=== PATIENT | female | born 1945 | race Caucasian/White ===

== ENCOUNTER 2019-03-26 06:42 | Day surgery (SDC) | payer OTHER ==
--- NOTE | 2019-03-25 17:00 | Pre-op HX & Phy Repo 2 SIG ---
DATE OF ADMISSION: 03/26/2019 DATE OF SURGERY: 03/26/2019 PREOPERATIVE DIAGNOSIS: Exposed scleral buckle, right eye. PROCEDURE TO BE PERFORMED: 1. Removal of scleral buckle, right eye. 2. Possible laser indirect ophthalmoscopy, right eye. BRIEF NOTE: This is a first [facility] admission for the patient, who is a very kind 73-year-old lady, who has had problems after a scleral buckling procedure done for retinal detachment in December of this year. The surgery went well, but there was exposure of the scleral buckle superotemporally. Her surgeon attempted closure of the defect in January, but this too was failed and she complains of constant irritation. She is admitted for removal of the buckle. PAST MEDICAL HISTORY: Remarkable for heart disease and hypertension. SOCIAL HISTORY: She is a former smoker. MEDICATIONS: She is currently on topical antibiotic ophthalmic drops, clopidogrel, rosuvastatin, metoprolol, and sertraline. ALLERGIES: She has no known allergies. PHYSICAL EXAMINATION: Best vision at the time of admission was 20/60 in the right eye and 20/40- in the left with pressures of 10 and 12. The external examination was unremarkable with normal pupils. Anterior segment examination of the right eye showed a conjunctival defect at about the 10 o'clock position overlying the scleral buckle. The buckling element and suture material were visible. No evidence of infection was seen. The left anterior segment was quiet. There was a bit of a gas cataract with nuclear sclerosis on the right. The left showed an early nuclear sclerotic cataract. Funduscopic examination of the right eye showed a peripheral scleral buckle. The retina was all attached with scattered areas of scarring suggestive of old laser treatment. The demarcation line was seen inferior to the macula extending from the buckle to below the optic nerve, suggestive of a prior level of detachment. The left fundus appeared benign without evidence of retinal tears or detachments. General physical examination was done by the patient's physician and will be updated on arrival. ASSESSMENT: 1. Extruding scleral buckle, right eye status post retinal detachment repair. 2. Early cataract, right eye. PLAN: The plan is to perform an external surgery with removal of the scleral buckle, closure of the defect, and laser indirect ophthalmoscopy if needed to reinforce the prior retinopexy. The risks and benefits of surgery have been gone over the patient with potential for infection, the detachment of the retina and late detachment the retina. The risk of anesthesia was discussed. The patient understands and consents to the surgery, which will be performed tomorrow morning. Jose Melgar M.D. DR: KVNG JOB#: [id number] CC:
[~2019-03-26] VITALS: Ht 149.9 cm; Wt 61.2 kg
[2019-03-26] VITALS (9 sets, daily range): BP systolic 106–122; BP diastolic 51–56
[~2019-03-26 06:42] MED LIST: Pred Forte 1% Opth Susp 1ml RIGHT EYE SCH
[2019-03-26] MEDS ORDERED: Lidocaine 2% MPF 5ml Vial INJ ONE (06:50)
[2019-03-26] MEDS ORDERED: Maxitrol Opth Susp 5ml ONE (06:50)
[2019-03-26] MEDS ORDERED: BSS 15ml BTL ONE (06:50)
[2019-03-26] MEDS ORDERED: Bupivacaine 0.25% Inj 30ml INJ ONE (06:50)
[2019-03-26] MEDS ORDERED: Povidone-Iodine 5% opth solution ONE (06:50)
[2019-03-26] MEDS: Vigamox Opth Soln 3ml RIGHT EYE SCH ×3 (07:04→07:20)
[2019-03-26] MEDS: Flurbiprofen 0.03% Opth Sol 2.5ml RIGHT EYE SCH ×3 (07:04→07:20)
[2019-03-26] MEDS: Phenylephrine 2.5% Op 2ml Soln RIGHT EYE SCH ×3 (07:04→07:20)
[2019-03-26] MEDS: Cyclopentolate 1% Opth Sol 2ml RIGHT EYE SCH ×3 (07:04→07:20)
[2019-03-26] MEDS ORDERED: fentaNYL 100 mcg/2 mL ONE (07:06)
[2019-03-26] MEDS ORDERED: Propofol 200mg/20ml IV ONE (07:06)
[2019-03-26] MEDS ORDERED: LR 1000ml ONE (07:30)
[2019-03-26] MEDS ORDERED: Sterile Water Irrig 1000ml IRRIG ONE (07:30)
[2019-03-26] MEDS ORDERED: NS Irrig 1000ml ONE (07:30)
[2019-03-26] MEDS ORDERED: CRESTOR20 MG ORAL (07:31)
[2019-03-26] MEDS ORDERED: PLAVIX75 MG ORAL (07:31)
[2019-03-26] MEDS ORDERED: MULTIVITAMINS1 EAC2 ORAL (07:31)
[2019-03-26] MEDS ORDERED: VITAMIN D32000 UNI2 PO (07:31)
[2019-03-26] MEDS ORDERED: SERTRALINE HCL25 MG ORAL (07:31)
[2019-03-26] MEDS ORDERED: ASPIR 8181 MG ORAL (07:31)
[2019-03-26] MEDS ORDERED: ZOLPIDEM TARTRA10 MG ORAL (07:31)
[2019-03-26] MEDS ORDERED: COQ1050 MG PO (07:31)
[2019-03-26] MEDS ORDERED: VITAMIN B122500 MCG PO (07:31)
[2019-03-26] MEDS ORDERED: METOPROLOL SUCC25 MG ORAL (07:31)
[2019-03-26] MEDS ORDERED: HYZAAR 50-12.51 EACH ORAL (07:31)
[2019-03-26] MEDS ORDERED: XANAX0.5 MG ORAL (07:31)
[2019-03-26] MEDS ORDERED: LR 1000ml 1,000 ML IVLG SCH (07:34)
--- NOTE | 2019-03-26 07:34 | Anethesia Preoperative Eval ---
Anesthesia Pre-op PMH/ROS General Date of Evaluation: Mar 26, 2019 Time of Evaluation: 07:29 Anesthesiologist: Lora ASA Score: ASA 3 Mallampati Score Class I : Soft palate, uvula, fauces, pillars visible Class II: Soft palate, uvula, fauces visible Class III: Soft palate, base of uvula visible Class IV: Only hard plate visible Mallampati Classification: Class II Surgeon: Ramón Diagnosis: R eye retained scleral buckle Surgical Procedure: R eye scleral buckle removal Anesthesia History: none Social History: smoking - h/o Family History: no anesthesia problems Allergies: Coded Allergies: No Known Allergies (Unverified , 03/26/19) Medications: see eMAR Patient NPO?: Yes Past Medical History Cardiovascular: Reports: HTN; Denies: CAD, [place], valve dz, arrhythmia, other Pulmonary: 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; Denies: asthma, SARAHY, other Gastrointestinal/Genitourinary: Reports: GERD - mkild; Denies: CRI, ESRD, other Neurologic/Psychiatric: Denies: dementia, CVA, depression/anxiety, TIA, other Endocrine: Denies: DM, hypothyroidism, steroids, other HEENT: Reports: cataract (L), cataract (R), other - h/o retinal detouchment R eye; Denies: glaucoma, [place] (L), [place] (R) Hematology/Immune: Denies: anemia, DVT, bleeding disorder, other Musculoskeletal/Integumentary: Reports: OA; Denies: RA, DJD, DDD, edema, other PMH Narrative: as above PSxH Narrative: R eye scleral buckle Anesthesia Pre-op Phys. Exam Physician Exam Last Vital Signs Date Time Temp Pulse Resp B/P (MAP) Pulse Ox O2 Delivery O2 Flow Rate FiO2 03/26/19 07:17 Room Air 03/26/19 07:10 98.4 55 18 118/55 98 Constitutional: NAD Neurologic: CN 2-12 intact Cardiovascular: RRR Respiratory: CTA Gastrointestinal: S/NT/ND Airway Exam Mallampati Score: Class II MO: limited Neck: stiff ROM: limited Teeth: missing Dentures: no upper, no lower Anesthesia Pre-op A/P Labs see chart Risk Assessment & Plan Assessment: ASA 3 Plan: MAC Pre-Antibiotics Drug: none Rafa Paulino MD Mar 26, 2019 07:34
--- NOTE | 2019-03-26 07:44 | Pre-Procedure Note/Attestation ---
Pre-Procedure Note/Attestation Complete Prior to Procedure Planned Procedure: right Procedure Narrative: Removal of exposed scleral buckle, possible laser indirect ophthalmoscopy RIGHT eye Indications for Procedure Pre-Operative Diagnosis: Exposed scleral buckle RIGHT eye Attestation I attest that I discussed the nature of the procedure; its benefits; risks and complications; and alternatives (and the risks and benefits of such alternatives ), prior to the procedure, with the patient (or the patient's legal shared services representative). I attest that, if there was a reasonable possibility of needing a blood transfusion, the patient (or the patient's legal shared services representative) was given the [facility] standardized written summary, pursuant to the Kristian [place] Blood Safety Act ([place] Health and Safety Code # 1645, as amended). I attest that I re-evaluated the patient just prior to the surgery and that there has been no change in the patient's H&P, except as documented below: Jose Melgar MD Mar 26, 2019 07:44
[2019-03-26] MEDS ORDERED: fentaNYL 100 mcg/2 mL IV PRN (07:45)
[2019-03-26] MEDS ORDERED: Ketorolac 30mg Inj IV PRN (07:45)
[2019-03-26] MEDS ORDERED: HYDROcodone/Acetamin 5/325 tab ORAL PRN (07:45)
[2019-03-26] MEDS ORDERED: DiphenhydrAMINE 50mg/ml Inj IVP PRN (07:45)
[2019-03-26] MEDS ORDERED: Dexamethasone 4mg/ml vial ONE (08:20)
[2019-03-26] MEDS ORDERED: Pred Forte 1% Opth Susp 1ml ONE (08:52)
--- NOTE | 2019-03-26 08:55 | Immediate Post-Op Evaluation ---
Immediate Post-Op Evalulation Immediate Post-Op Evalulation Procedure: R eye removal of scleral buckle, laser treatment Date of Evaluation: Mar 26, 2019 Time of Evaluation: 08:53 IV Fluids: 400 Blood Products: none Estimated Blood Loss: min Urinary Output: none Blood Pressure Systolic: 116 Blood Pressure Diastolic: 58 Pulse Rate: 56 Respiratory Rate: 20 O2 Sat by Pulse Oximetry: 99 Temperature (Fahrenheit): 97.6 Pain Score (1-10): 1 Nausea: No Vomiting: No Complications none Patient Status: awake, patent, none Hydration Status: adequate Rafa Paulino MD Mar 26, 2019 08:55
[2019-03-26] MEDS ORDERED: Polysporin Opth Oint 3.5gm ONE (08:58)
--- NOTE | 2019-03-26 08:59 | Brief Operative Note ---
Immediate Post Operative Note Operative Note Chief Complaint: Irritation and discharge right eye Pre-op Diagnosis: Exposed scleral buckle RIGHT eye Procedure: Removal of extruding scleral buckle, closure of conjunctival defect, extended ophthalmoscopy examination Right eye Post-op Diagnosis: same as pre-op Surgeon: ashlyn Anesthesiologist: Lora Anesthesia: MAC Specimen: yes - Extruded silicone scleral buckle for identification Complications: none Condition: stable Fluids: per Anesthesia Estimated Blood Loss: none Drains: none Implant(s) used?: No Jose Melgar MD Mar 26, 2019 08:59
--- NOTE | 2019-03-26 09:45 | 48 Hour Post Anesthesia Eval ---
Post Anesthesia Evaluation Procedure: R eye removal of scleral buckle, laser treatment Date of Evaluation: Mar 26, 2019 Time of Evaluation: 09:43 Blood Pressure Systolic: 110 0: 64 Pulse Rate: 58 Respiratory Rate: 18 Temperature (Fahrenheit): 97.9 O2 Sat by Pulse Oximetry: 98 Airway: patent Nausea: No Vomiting: No Pain Intensity: 1 Hydration Status: adequate Cardiopulmonary Status: stable Mental Status/LOC: patient returned to baseline Follow-up Care/Observations: n/a Post-Anesthesia Complications: none Follow-up care needed: ready to discharge Rafa Paulino MD Mar 26, 2019 09:44
--- NOTE | 2019-03-26 16:00 | Operative Note - Dictated ---
DATE OF OPERATION: 03/26/2019 PREOPERATIVE DIAGNOSIS: Extruding scleral buckle, right eye. POSTOPERATIVE DIAGNOSIS: Extruding scleral buckle, right eye PROCEDURES PERFORMED: 1. Removal of extruding scleral buckle. 2. Closure of conjunctival defect. 3. Examination of peripheral retina, extended ophthalmoscopy, right eye. SURGEON: Jose Melgar M.D. FINISHED STOCK INSPECTOR: None. ANESTHESIA: Local with sedation. ANESTHESIOLOGIST: Rafa Paulino M.D. JUSTIFICATION FOR SURGERY: This 73-year-old lady, developed a retinal detachment in December which was repaired. She developed exposure and partial extrusion of a scleral buckle that was initially repaired by the operating surgeon, but this repair also failed. She is admitted for removal of the scleral buckle and examination and placement of additional laser retinopexy is needed. BRIEF NOTE: The patient was brought to the operative room and placed on the OR table in supine position. After a time-out was performed and agreed upon by the staff, and initial monitoring secured by Dr. Paulino, retrobulbar and Van Lint blocks given in the standard way. When the blocks taken effect, she was prepped and draped in normal manner. A lid speculum inserted into the right eye. Examination revealed a large open defect superotemporally with exposed sutures. The sutures were removed and the extruding scleral buckle was noted to slide gently from the wound. The wound was examined for other remnants of visible cortical material, but none were found. The defect in the conjunctiva inferonasally was slightly enlarged with exploration would take place. Going posteriorly, no visible encircling band was noted. At this juncture, when the edges of the wound were relaxed, closure was effected with 6-0 plain catgut, interrupted with the knots buried. With the wounds now closed, the indirect ophthalmoscope was used to examine the eye 360 degrees with scleral depression. Peripheral retinopexy was seen, but no open breaks for subretinal fluid was noted and it was felt that no additional laser indirect treatment would be needed. Subconjunctival Decadron and gentamicin were then injected and topical Maxitrol drops and moxifloxacin drops as well as prednisolone acetate were instilled. The eye was patched and shielded, and the patient taken to recovery in excellent condition. There were no complications. Jose Melgar M.D. DR: IKE JOB#: [id number] CC: Jose Melgar M.D.; Fax#: [phone]
== END 2019-03-26 10:45 | disposition home or self-care (01) ==
LOC: SUR 06:42
DX: H33.8 Other retinal detachments (principal); Z87.891 Personal history of nicotine dependence; I11.9 Hypertensive heart disease without heart failure; I25.10 Atherosclerotic heart disease of native coronary artery without angina pectoris; Z79.899 Other long term (current) drug therapy; H25.11 Age-related nuclear cataract, right eye; I10 Essential (primary) hypertension; J44.9 Chronic obstructive pulmonary disease, unspecified; K21.9 Gastro-esophageal reflux disease without esophagitis; M19.90 Unspecified osteoarthritis, unspecified site
CPT/HCPCS: 67107; 93005; J1100; J2704; J3010; J3490; 94003; 94150